=== PATIENT | female | born 1935 | race Two or more races ===

== ENCOUNTER 2017-11-15 09:04 | Outpatient (CLI) | payer OTHER ==
[~2017-11-15 09:04] MED LIST: ATACAND16 MG PO; FLEXERIL10 MG PO; HYDRALAZINE HCL25 MG PO; NORVASC10 MG PO; PRILOSEC20 MG PO; TOPROL XL25 M1 PO; ZYLOPRIM100 M1 PO
== END 2017-11-15 09:05 | disposition home or self-care (01) ==
LOC: LAB 09:04
DX: E11.65 Type 2 diabetes mellitus with hyperglycemia (principal); E78.2 Mixed hyperlipidemia; E03.8 Other specified hypothyroidism; E11.21 Type 2 diabetes mellitus with diabetic nephropathy; N18.3 Chronic kidney disease, stage 3 (moderate); N30.00 Acute cystitis without hematuria; D63.1 Anemia in chronic kidney disease; E78.4 Other hyperlipidemia; R82.79 Other abnormal findings on microbiological examination of urine

== ENCOUNTER 2018-05-18 09:49 | Outpatient (CLI) | payer OTHER | END 2018-05-18 09:56 | disposition home or self-care (01) | LOC: SONOGRAMA 09:49 → SONO 607 10:15 | DX: M65.812 Other synovitis and tenosynovitis, left shoulder (principal); M65.811 Other synovitis and tenosynovitis, right shoulder ==

== ENCOUNTER 2018-12-11 11:08 | Outpatient (CLI) | payer OTHER | END 2018-12-11 11:16 | disposition home or self-care (01) | LOC: RAD 11:08 | DX: J45.998 Other asthma (principal) ==

== ENCOUNTER 2019-05-22 08:48 | Outpatient (CLI) | payer OTHER | END 2019-05-22 08:49 | disposition home or self-care (01) | LOC: SONOGRAMA 08:48 → MAMO-SONO 09:15 | DX: R10.84 Generalized abdominal pain (principal); N18.3 Chronic kidney disease, stage 3 (moderate); R31.29 Other microscopic hematuria ==

== ENCOUNTER 2019-09-26 11:39 | Emergency (ER) | payer OTHER ==
[~2019-09-26] VITALS: Ht 154.9 cm; Wt 66.7 kg
[2019-09-26] MEDS ORDERED: ZYLOPRIM300 MG (12:13)
[2019-09-26] MEDS ORDERED: SYNTHROID125 MCG (12:14)
[2019-09-26] MEDS ORDERED: ZETIA10 MG (12:14)
[2019-09-26] MEDS ORDERED: NORVASC2.5 M1 (12:14)
[2019-09-26] MEDS ORDERED: TOPROL XL25 M1 (12:15)
[2019-09-26] MEDS ORDERED: CANDESARTAN CILE8 MG (12:15)
[2019-09-26] MEDS ORDERED: SYNTHROID137 MCG (12:16)
== END 2019-09-26 18:51 | disposition home or self-care (01) ==
LOC: ER 11:39
DX: R42 Dizziness and giddiness (principal)

== ENCOUNTER 2020-01-10 08:49 | Outpatient (CLI) | payer OTHER ==
[~2020-01-10 08:49] MED LIST changes: +CANDESARTAN CILE8 MG; +NORVASC2.5 M1; +SYNTHROID125 MCG; +SYNTHROID137 MCG; +TOPROL XL25 M1; +ZETIA10 MG; +ZYLOPRIM300 MG
== END 2020-01-10 08:55 | disposition home or self-care (01) ==
LOC: SONOGRAMA 08:49
PROVIDERS: ATTEND Specialist
DX: E03.8 Other specified hypothyroidism (principal); E04.2 Nontoxic multinodular goiter

== ENCOUNTER 2020-01-17 07:17 | Outpatient (CLI) | payer OTHER | END 2020-01-17 11:07 | disposition home or self-care (01) | LOC: NUCLEAR 07:17 | PROVIDERS: ATTEND Internal Medicine Cardiovascular Disease | DX: R07.89 Other chest pain (principal) | CPT/HCPCS: 78452; 93017; A9500; J0153 ==

== ENCOUNTER 2020-02-20 09:59 | Outpatient (CLI) | payer OTHER | END 2020-02-20 10:03 | disposition home or self-care (01) | LOC: SONOGRAMA 09:59 | PROVIDERS: ATTEND Pathology Anatomic Pathology | DX: E04.2 Nontoxic multinodular goiter (principal) ==

== ENCOUNTER 2020-08-26 09:43 | Outpatient (CLI) | payer OTHER | END 2020-08-26 09:46 | disposition home or self-care (01) | LOC: NUCLEAR 09:43 | PROVIDERS: ATTEND Specialist | DX: M81.0 Age-related osteoporosis without current pathological fracture (principal) ==

== ENCOUNTER 2020-09-16 08:51 | Outpatient (CLI) | payer OTHER | END 2020-09-16 09:03 | disposition home or self-care (01) | LOC: RAD 08:51 | PROVIDERS: ATTEND Specialist | DX: J45.998 Other asthma (principal) ==

== ENCOUNTER 2021-10-11 10:09 | Outpatient (CLI) | payer OTHER | END 2021-10-11 10:16 | disposition home or self-care (01) | LOC: TOM 10:09 | PROVIDERS: ATTEND Specialist | DX: I11.0 Hypertensive heart disease with heart failure (principal); I42.2 Other hypertrophic cardiomyopathy ==

== ENCOUNTER 2021-10-15 07:11 | Outpatient (CLI) | payer OTHER | END 2021-10-15 07:12 | disposition home or self-care (01) | LOC: NUCLEAR 07:11 | PROVIDERS: ATTEND Internal Medicine Cardiovascular Disease | DX: I25.9 Chronic ischemic heart disease, unspecified (principal) | CPT/HCPCS: 78452; 93017; A9500; J0153 ==

== ENCOUNTER 2022-08-18 09:00 | Outpatient (CLI) | payer OTHER | END 2022-09-06 11:46 | disposition home or self-care (01) | LOC: RAD 09:00 | PROVIDERS: ATTEND Specialist | DX: I50.9 Heart failure, unspecified (principal) ==

== ENCOUNTER 2022-11-15 12:52 | Outpatient (CLI) | payer OTHER | END 2022-11-15 12:55 | disposition home or self-care (01) | LOC: LAB 12:52 | PROVIDERS: ATTEND Specialist | DX: A49.3 Mycoplasma infection, unspecified site (principal); N39.9 Disorder of urinary system, unspecified; D64.9 Anemia, unspecified; J45.998 Other asthma; N39.0 Urinary tract infection, site not specified; Z20.822 Contact with and (suspected) exposure to COVID-19 ==

== ENCOUNTER → 2023-05-31 13:03 | Outpatient (CLI) | payer OTHER ==
[2023-05-31 14:42] LABS: MYCOPLASMA PNEUMONIAE IGM NON REACTIVE (NO REACTIVE)
== END | disposition home or self-care (01) ==
LOC: LAB 13:03
PROVIDERS: ATTEND Specialist
DX: U07.1 COVID-19 (principal); J11.1 Influenza due to unidentified influenza virus with other respiratory manifestations; A49.3 Mycoplasma infection, unspecified site; J45.998 Other asthma

== ENCOUNTER → 2023-11-03 | Outpatient (CLI) | payer OTHER | END | disposition home or self-care (01) | LOC: NUCLEAR 12:54 | PROVIDERS: ATTEND Specialist | DX: M81.0 Age-related osteoporosis without current pathological fracture (principal) ==

== ENCOUNTER 2024-05-29 08:59 | Outpatient (CLI) | payer OTHER | END 2024-05-29 09:04 | disposition home or self-care (01) | LOC: SONOGRAMA 08:59 | PROVIDERS: ATTEND Specialist/Technologist, Other Nephrology | DX: R10.9 Unspecified abdominal pain (principal); N18.30 Chronic kidney disease, stage 3 unspecified; R31.9 Hematuria, unspecified ==

== ENCOUNTER 2024-10-31 09:07 | Outpatient (CLI) | payer OTHER ==
[2024-10-31 09:43] LABS: EOS # 0.21 (0.04-0.54); HEMATOCRIT 30.1 % (34.1-44.9); HEMOGLOBIN 9.4 g/dL (11.2-15.7); LYMPH # 0.99 (1.18-3.74); MEAN CORPUSCULAR HEMOGLOBIN 29.5 pg (25.6-32.2); MONO # 0.61 (0.24-0.82); MONO % 11.7 % (4.7-12.5); NEUT # 3.32 (1.56-6.13); NEUT % 63.9 % (34.0-71.1); PLATELET COUNT 140 K/uL (163-369); RED BLOOD COUNT 3.19 M/uL (3.93-5.22); RED CELL DISTRIBUTION WIDTH 14.7 % (11.6-14.4)
[2024-10-31 10:04] LABS: PH,URINE 6.5 (5.0-8.0); URINE APPEARANCE Clear; URINE BILIRRUBIN Negative (NEGATIVE); URINE BLOOD Negative; URINE COLOR Yellow; URINE GLUCOSE Negative (NEGATIVE); URINE KETONE Negative (NEGATIVE); URINE LEUKOCYTE Negative; URINE NITRATE Negative; URINE PROTEIN Negative (NEGATIVE); URINE UROBILINOGEN 0.2 E.U./dl
[2024-10-31 10:05] LABS: URINE BACTERIA 214.1 uL (0.0-1933); URINE RBC 2.6 uL (0.0-20.8)
[2024-10-31 10:14] LABS: CREATININE URINE RANDOM 42.3 MG/DL (30-125)
[2024-10-31 10:16] LABS: URINE WBC 1.2 uL (0.0-23.2)
[2024-10-31 11:18] LABS: ALBUMIN 3.7 gm/dL (3.4-5.0); ALKALINE PHOSPHATASE 63 U/L (50-136); ALT/SGPT 29 U/L (12-78); ANION GAP 8 (10.0-20.0); AST/SGOT 29 U/L (15-37); BILIRUBIN TOTAL 0.73 mg/dL (0.3-1.2); BLOOD UREA NITROGEN 31 mg/dL (7-18); BUN CREA RATIO 19 (7.0-25.0); CALCIUM 9.5 mg/dL (8.5-10.1); CARBON DIOXIDE 29 mEq/L (21-32); CHLORIDE 106 mmol/L (98-107); CHOL HDL RATIO 1.6 (0-5.0); CHOLESTEROL 120 mg/dL (0-200); FREE TRIODOTIRONINE 2.04 pg/ml (2.18-3.98); GFR 30.35; GLOBULINA 3.7 G/DL (2.4-3.5); GLUCOSE FASTING 107 mg/dL (65-100); HDL 73 mg/dl (40-60); LDL 29 mg/dl (0-130); OSMOLALITY SERUM 285 MOSM/KG (275-295); POTASSIUM 4.29 mEq/L (3.5-5.1); SODIUM 139 mmol/L (136-145); T4 FREE 1.25 NG/ML (0.76-1.46); TOTAL PROTEIN 7.4 gm/dL (6.4-8.2); TRIGLYCERIDES 89 mg/dL (0-150); VLDL 17 (0-39)
[2024-10-31 11:19] LABS: C-REACTIVE PROTEIN < 0.29 MG/DL (0.00-0.29)
[2024-10-31 11:20] LABS: TSH 0.334 uIU/mL (0.358-3.74)
== END 2024-10-31 09:17 | disposition home or self-care (01) ==
LOC: LAB 09:07
PROVIDERS: ATTEND Specialist
DX: E03.9 Hypothyroidism, unspecified (principal); N39.9 Disorder of urinary system, unspecified; E78.2 Mixed hyperlipidemia; E11.65 Type 2 diabetes mellitus with hyperglycemia; D64.9 Anemia, unspecified; J45.998 Other asthma; N25.81 Secondary hyperparathyroidism of renal origin; N39.0 Urinary tract infection, site not specified; E11.21 Type 2 diabetes mellitus with diabetic nephropathy; E55.9 Vitamin D deficiency, unspecified

== ENCOUNTER 2024-10-31 09:42 | Outpatient (CLI) | payer OTHER | END 2024-10-31 09:47 | disposition home or self-care (01) | LOC: RAD 09:42 | PROVIDERS: ATTEND Specialist | DX: J45.998 Other asthma (principal) ==